=== PATIENT | female | born 1955 | race Caucasian/White ===

== ENCOUNTER → 2018-02-28 | Outpatient (CLI) | payer OTHER ==
--- NOTE | 2018-02-28 15:15 | RAD ---
Bilateral shoulders, 8 views, 02/28/2018: HISTORY: Shoulder pain There are surgical clips in the left axillary region. Additional small radiopaque foreign bodies overlying the left upper shoulder probably lie on the surface of the patient. No left shoulder fracture or dislocation is identified. There is moderate spurring at the left AC joint. On the right, there is also moderate spurring at the AC joint. There is mild degenerative change at rotator cuff insertion sites on the greater tuberosity. No fracture or dislocation is identified. Additional small radiopaque foreign bodies overlie the upper right shoulder. IMPRESSION: 1. Mild degenerative change at both shoulders. 2. No acute bony abnormality is detected. Electronically signed by: Roel Henry MD (02/28/2018 3:12 PM) [facility]
== END | disposition home or self-care (01) ==
LOC: RAD 11:03
PROVIDERS: ATTEND Orthopaedic Surgery Sports Medicine
DX: M19.012 Primary osteoarthritis, left shoulder (principal); M19.011 Primary osteoarthritis, right shoulder
CPT/HCPCS: 73030

== ENCOUNTER → 2020-02-03 | Outpatient (CLI) | payer OTHER ==
--- NOTE | 2020-02-03 14:48 | RAD ---
Bilateral 3 view knee radiographs 02/03/2020 CLINICAL HISTORY: Knee pain. Standing AP digital radiographs of both knees were obtained. Lateral and sunrise digital radiographs of both knees were obtained. Screws related to a right ACL reconstruction are seen within the right knee. No fracture or dislocation of either knee is seen. Moderate to severe degenerative changes are seen involving all 3 compartments of both knees. These consist of marked joint compartment narrowing, subchondral sclerosis and associated osteophyte formation. This particularly involves the medial compartments of both knees, left greater than right. IMPRESSION: Moderate to severe degenerative changes are seen involving both knees. No acute osseous abnormality is seen. Electronically signed by: Justen Ellington MD (02/03/2020 2:45 PM) [id number]
== END ==
LOC: RAD 12:59
PROVIDERS: ATTEND Orthopaedic Surgery
DX: M17.0 Bilateral primary osteoarthritis of knee (principal)
CPT/HCPCS: 73560; 73565

== ENCOUNTER 2021-02-23 10:49 | Emergency (ER) | payer MEDICARE, OTHER ==
[~2021-02-23] VITALS: Ht 160 cm; Wt 100.9 kg
[2021-02-23 11:20] VITALS: BP 153/78
--- NOTE | 2021-02-23 11:56 | PHYS DOC ---
Past History Additional Past Medical Histor: frequent epistaxis L side (CAM LARRY) Past Medical History: Diabetes, High Cholesterol, Hypertension, Hypothyroid Additional Past Medical Histor: Sleep apnea (GUTIERREZ BRENNAN DO) Additional Past Surgical Histo: Left knee, left hand, right knee, left breast, left carpal tunnel, right sh (GUTIERREZ BRENNAN DO) Smoking: Non-smoker Alcohol Use: None Drug Use: None (GUTIERREZ BRENNAN DO) General Adult EDM: Chief Complaint: NOSEBLEED HPI: HPI: Patient is a 65 year old female with history of frequent left-sided epistaxis who presents with 2 nosebleeds this morning. Patient states that her left side nose began bleeding early this morning. It stopped bleeding, and then restarted and bled for about 35 minutes. Bleeding stopped upon arrival to the emergency department. Patient states that she normally bleeds from the left side, but that the blood sometimes runs into her throat and occasionally to the right side as well. Patient reports she had her blood vessels cauterized 9 days ago, but her nosebleed today was worse than any prior. She reports that prior to cauterization, she got a nosebleed about 1 time per week. Patient reports history of sleep apnea, for which she wears a mask that covers her nose only. Patient reports associated weakness and headache. Patient follows with Dr. Eagle for ENT care. Patient has no other complaints at this time. (CAM LARRY) Review of Systems: Review of Systems: Constitutional: Denies fever or chills HENT: See HPI Respiratory: Denies cough or shortness of breath Cardiovascular: Denies chest pain or edema GI: Denies abdominal pain, nausea, vomiting, bloody stools or diarrhea Integument: Denies rash or other skin lesions Neurologic: See HPI (CAM LARRY) Physical Exam: PE: Constitutional: Well developed, well nourished, no acute distress, non-toxic appearance. HENT: Normocephalic, atraumatic, bilateral external ears normal, moist mucous membranes, no oral exudates, dried blood noted in left nasal canal, turbinates without swelling or erythema bilaterally. Eyes: PERRLA, EOMI, conjunctiva normal, no discharge. Neck: Normal range of motion, no tenderness, no stridor. Cardiovascular: Heart rate regular rhythm, no murmur. Lungs & Thorax: Bilateral breath sounds clear to auscultation. Neurologic: Alert and oriented x3, normal motor function, no focal deficits noted. (CAM LARRY) Heart Score: C/O Chest Pain: No (CAM LARRY) Course & Med Decision Making: Course & Med Decision Making Pertinent Labs and Imaging studies reviewed. (See chart for details) Due to history of frequent nosebleeds and, per patient, prolonged nosebleed toda y, CBC ordered to evaluate for anemia. Otherwise, will discuss case with Dr. Eagle. Patient is not anemic. She should follow with ENT this week. Patient understands and is agreeable to discharge plan. (CAM LARRY) Dragon Disclaimer: Dragon Disclaimer: This electronic medical record was generated, in whole or in part, using a voice recognition dictation system. (CAM LARRY) Departure Departure: Impression: Primary Impression: Recurrent epistaxis Disposition: HOME / SELF CARE / HOMELESS Condition: STABLE Referrals: ARTURO SÁNCHEZ (PCP) Patient Instructions: Nosebleed, [id number] Additional Instructions: As discussed, you should follow-up with your ENT doctor. I did call them and make them aware that you would be calling them to schedule an appointment. If you have another episode in your nose was not stop bleeding, you may return to the emergency department for further treatment. Attending Signature Attending Signature I have reviewed the PA/COMBINE INSPECTOR's note and plan of care. I was available for consultation as needed during the patient's visit in the emergency department. I agree with the clinical impression, plan, and disposition. (GUTIERREZ BRENNAN DO) CAM LARRY Feb 23, 2021 11:56 GUTIERREZ BRENNAN DO Feb 23, 2021 17:04
[2021-02-23 12:17] LABS: BASO # 0.1 x10^3/uL (0.0-0.2); BASO % 1 % (0-3); EOS # 0.5 x10^3/uL (0.0-0.7); EOS % 10 % (0-3); HEMATOCRIT 41.4 % (36.0-47.0); HEMOGLOBIN 14.1 g/dL (12.0-15.5); LYMPH # 1.3 x10^3/uL (1.0-4.8); LYMPH % 27 % (24-48); MEAN CORPUSCULAR HEMOGLOBIN 32 pg (25-35); MEAN CORPUSCULAR HGB CONC 34 g/dL (31-37); MEAN CORPUSCULAR VOLUME 95 fL (79-100); MONO # 0.4 x10^3/uL (0.0-1.1); MONO % 9 % (0-9); NEUT # 2.5 x10^3uL (1.8-7.7); NEUT % 53 % (31-73); PLATELET COUNT 227 x10^3/uL (140-400); RED BLOOD COUNT 4.34 x10^6/uL (3.50-5.40); RED CELL DISTRIBUTION WIDTH 13.8 % (11.5-14.5); WHITE BLOOD COUNT 4.7 x10^3/uL (4.0-11.0)
== END 2021-02-23 13:54 | disposition home or self-care (01) ==
LOC: ER 10:49
DX: R04.0 Epistaxis (principal); E11.9 Type 2 diabetes mellitus without complications; E78.5 Hyperlipidemia, unspecified; I10 Essential (primary) hypertension
CPT/HCPCS: 36415; 85025; 99283-25

== ENCOUNTER → 2021-03-25 | Outpatient (CLI) | payer MEDICARE, OTHER ==
[2021-02-23 11:20] VITALS: BP 153/78
[~2021-03-25] MED LIST: LEVO112T4 PO; PARO20TA3 PO; ativan; carvedilol
== END ==
LOC: LAB 10:44
PROVIDERS: ATTEND Otolaryngology
DX: Z01.812 Encounter for preprocedural laboratory examination (principal); Z20.822 Contact with and (suspected) exposure to COVID-19
CPT/HCPCS: U0003

== ENCOUNTER → 2021-03-29 | Day surgery (SDC) | payer MEDICARE, OTHER ==
[~2021-03-29] MED LIST changes: +DEXAMETHASONE SOD PHOS 4 MG/ML VIAL. ONE; +FAMOTIDINE 20 MG/2 ML VIAL IVP ONE; +GELATIN SPONGE SIZE 12-7MM SPONGE. ONE; +GELATIN SPONGE SIZE 12-7MM SPONGE. TP ONE; +IV RINGERS SOLUTION,LACTATED 1,000 ML IV SCH; +LIDOCAINE 1%/EPI 1:100,000 20 ML VIAL. IJ ONE; +LIDOCAINE 1%/EPI 1:100,000 20 ML VIAL. ONE; +LIDOCAINE 2% PF 5 ML VIAL. ONE; +MIDAZOLAM HCL PF 2 MG/2 ML VIAL. IVP PRN; +ONDANSETRON PF 4 MG/2 ML VIAL. IVP ONE; +OXYMETAZOLINE 0.05% NASAL SPRAY 30ML BOTTLE. NS ONE; +PROPOFOL 10,000 MCG/ML (20ML) VIAL IV ONE
[2021-03-29 13:58] VITALS: BP 149/77
--- NOTE | 2021-03-29 18:50 | OP ---
DATE OF SURGERY: 03/29/2021 PREOPERATIVE DIAGNOSIS: Recurrent epistaxis. POSTOPERATIVE DIAGNOSIS: Recurrent epistaxis. PROCEDURE PERFORMED: Control of epistaxis under anesthesia. INDICATIONS FOR THE PROCEDURE: Persistent nasal bleeding without sufficient control obtained in the office. ANESTHESIA: General anesthetic. ESTIMATED BLOOD LOSS: Approximately 30 mL. DESCRIPTION OF PROCEDURE: The patient was brought to the operating room and placed on the operating room table in the supine position. She was given a general anesthetic and her airway was secured. Her nose had been lightly decongested with Afrin nasal spray. Examination of the nasal septum in the left side of the nose revealed an attachment of mucus with purulent characteristics. This was removed and the surface of the nasal septum was very fragile. Bleeding was occurring from a relatively central point and neurosurgical cottonoids containing adrenaline was applied to the surface. The right side was then also examined and the mucous membrane that was intact; however, there was some fragile superiorly and a small vessel was noted with some bleeding, adrenaline and cottonoid was attached and applied to this area. In the left side of the nose when bleeding was controlled and vascular network was more easily examined, use of electrocautery very lightly was applied, 2 specific areas which appeared to be vascular network. This was accomplished at approximately 3-4 sites encircling the central area were appeared bleeding had occurred more frequently. Neurosurgical cottonoid was then placed over the area and attention given to the right side. In the right side, a small vascular area superiorly and the septum was then lightly cauterized with electrocautery. The left side was then reexamined and bleeding appeared to be much more stable. There was no active flow. Gentle pressure again with some abrasion to attempt to reveal any additional bleeding sites did not result in any bleeding after which the nose was irrigated. The nasopharynx was cleared and a pad of Gelfoam was placed over the area of suspicion. The right side was then examined, then on this side also because bleeding was all stable, the surface was then covered with Gelfoam. The nasopharynx was suctioned free of blood and the procedure was completed. The patient was recovered from her anesthesia and taken to recovery room in stable condition. NALLELY DR: Keith TID: [id number]
== END | disposition home or self-care (01) ==
LOC: SURG 10:35
PROVIDERS: ATTEND Otolaryngology
DX: R04.0 Epistaxis (principal); Z87.891 Personal history of nicotine dependence; Z79.899 Other long term (current) drug therapy; Z98.890 Other specified postprocedural states; Z88.8 Allergy status to other drugs, medicaments and biological substances
CPT/HCPCS: 30901; 82947; J0171; J1100; J2001; J2405; J2704; J3010